=== PATIENT | female | born 1990 | race Caucasian/White ===

== ENCOUNTER 2018-02-18 06:40 | Day surgery (SDC) | payer BC ==
[2018-02-18] MEDS ORDERED: Bupivacaine 25%/EPINEPHrine/PF 30 ML ONE (07:11)
--- NOTE | 2018-02-18 07:18 | PCM.PREANE ---
Preanesthetic Assessment - Anesthesia/Transfusion/Family Hx Anesthesia History: Prior Anesthesia Without Reaction Family History of Anesthesia Reaction: No Transfusion History: No Prior Transfusion(s) Intubation History: Unknown - Review of Systems General: No Symptoms Pulmonary: No Symptoms Cardiovascular: No Symptoms Gastrointestinal: No Symptoms Neurological: No Symptoms Other: Reports: None - Physical Assessment Height: 1.68 m Weight: 111.13 kg ASA Class: 2 Mental Status: Alert & Oriented x3 Airway Class: Mallampati = 2 Dentition: Reports: Normal Dentition Thyro-Mental Finger Breadths: 3 Mouth Opening Finger Breadths: 2 ROM/Head Extension: Full Lungs: Clear to Auscultation, Normal Respiratory Effort Cardiovascular: Regular Rate, Regular Rhythm - Lab Values: Laboratory Last Values POC Glucose 163 mg/dL (60-110) H 02/18/18 07:06 Urine HCG, Qual NEGATIVE (NEGATIVE) 02/18/18 06:55 - Allergies Allergies/Adverse Reactions: Allergies Allergy/AdvReac Type Severity Reaction Status Date / Time ibuprofen Allergy Anaphylactic Verified 02/15/18 10:42 Shock - Blood Product(s) Available: None - Anesthesia Plan Pre-Op Medication Ordered: None - Acknowledgements Anesthesia Type Planned: MAC Pt an Appropriate Candidate for the Planned Anesthesia: Yes Alternatives and Risks of Anesthesia Discussed w Pt/Guardian: Yes Pt/Guardian Understands and Agrees with Anesthesia Plan: Yes PreAnesthesia Questionnaire Cardiovascular History: Reports: Other (See Below) Other Cardiovascular History: Gestational Hypertension with first Gastrointestinal History: Reports: None Genitourinary History: Reports: UTI, 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: Endocrine/Metabolic History: Reports: Diabetes, Type I (has insulin pump), Obesity/BMI 30+ Other Endocrine/Metabolic History: hypothyroidism with first Dermatologic History: Reports: Eczema - Past Surgical History Head Surgeries/Procedures: Reports: None GI Surgical History: Reports: Appendectomy - SUBSTANCE USE Smoking Status *Q: Never Smoker Second Hand Smoke Exposure: No Days Per Week of Alcohol Use: 0 Recreational Drug Use History: No - HOME MEDS Home Medications: Home Meds Subcutaneous Insulin Pump [Insulin Pump] 1 each MC ASDIRECTED 03/24/15 [History] - CURRENT (IN HOUSE) MEDS Current Meds: Current Medications Hydrocodone Bitart/Acetaminophen ([place] 325-5 Mg) 1 tab PO Q4H PRN PRN Reason: Pain Bupivacaine HCl/Epinephrine Bitart (Marcaine 0.25%/Epinephrine 1:200,000) 10 ml INJECT ONETIME ONE Stop: 02/18/18 08:01 Cefazolin Sodium/Dextrose 2 gm (/ Premix) 50 mls @ 100 mls/hr IV ONETIME ONE Stop: 02/18/18 08:29 Lactated Ringer's (Ringers, Lactated) 1,000 mls @ 125 mls/hr IV ASDIRECTED CLARA Last Admin: 02/18/18 07:11 Dose: 125 mls/hr Discontinued Medications Bupivacaine HCl/Epinephrine Bitart (Sensorc Mpf 0.25%-Epi [id number]) Confirm Administered Dose 30 mls @ as directed .ROUTE .STK-MED ONE Stop: 02/18/18 07:12
[2018-02-18] MEDS ORDERED: fentaNYL 100 MCG/2 ML SDV ONE (07:20)
[2018-02-18] MEDS ORDERED: Propofol 200 MG/20 ML SDV ONE (07:20)
[2018-02-18] MEDS ORDERED: Lidocaine 2% 5 ML SDV ONE (07:20)
[2018-02-18] MEDS ORDERED: Midazolam 1 MG/ML 2 ML SDV ONE (07:21)
[2018-02-18] MEDS ORDERED: ceFAZolin/Dextrose,Iso-Osmotic 2 GM/50 ML Duplex Bag IV ONE (07:33)
[2018-02-18] MEDS ORDERED: ceFAZolin 2 GM in Premix Bag 1 BAG IV ONE (08:00)
[2018-02-18] MEDS ORDERED: Lactated Ringers 1,000 ML IV SCH (08:00)
[2018-02-18] MEDS ORDERED: Acetaminophen/HYDROcodone 325-5 MG Tab PO PRN (08:00)
[2018-02-18] MEDS ORDERED: Bupivacaine 0.25%/EPINEPHrine 1:200,000 10 ML SDV INJECT ONE (08:00)
--- NOTE | 2018-02-18 09:03 | PCM48HPAN ---
Post Anesthesia Note - EVALUATION WITHIN 48HRS OF ANESTHETIC Vital Signs in Normal Range: Yes Patient Participated in Evaluation: Yes Respiratory Function Stable: Yes Airway Patent: Yes Cardiovascular Function Stable: Yes Hydration Status Stable: Yes Pain Control Satisfactory: Yes Nausea and Vomiting Control Satisfactory: Yes Mental Status Recovered: Yes Resp Rate: 15 - COMMENTS/OBSERVATIONS Free Text/Narrative:: no anesthesia problems
[2018-02-18 09:20] VITALS: BP 117/64
--- NOTE | 2018-02-18 11:04 | PCM.OPNOTE ---
- General Post-Op/Procedure Note Date of Surgery/Procedure: 02/18/18 Operative Procedure(s): right carpal tunnel release Pre Op Diagnosis: right carpal tunnel Post-Op Diagnosis: Same Anesthesia Technique: Local, MAC Primary Surgeon: Cristina Chen Complications: None Condition: Good Free Text/Narrative:: Intake & Output 02/17/18 02/18/18 02/18/18 23:59 07:59 15:59 Intake Total 1000 Balance 1000
--- NOTE | 2018-02-18 19:55 | OR ---
SURGEON: CRISTINA CHEN MD DATE OF PROCEDURE: 02/18/2018 PREOPERATIVE DIAGNOSIS: Right carpal tunnel syndrome. POSTOPERATIVE DIAGNOSIS: Right carpal tunnel syndrome. PROCEDURE: Right carpal tunnel release. PRIMARY SURGEON: Cristina Chen MD. ANESTHESIA: Local MAC. INDICATIONS: Ms. Gaston is a 27-year-old female, seen today for right carpal tunnel release. Risks and benefits of release were discussed with her and she was in agreement to proceed. Risks were including, but not limited to, bleeding, infection, damage to underlying or overlying structures, possible need for future interventions, and possible scarring. PROCEDURE IN DETAIL: After informed consent was obtained and placed on the chart, the patient was brought to the operating theater and laid in the supine position. After adequate local MAC anesthesia was obtained, the area was prepped and draped and a time-out was completed to confirm side and site. The arm was exsanguinated. The tourniquet was insufflated to 200 mmHg. Once this was completed, attention was then paid to dissection of the transverse carpal ligament using a 15 blade through the skin and subcutaneous tissues. Under direct visualization, the ligament was breached, and dissection was carried distally and proximally under direct visualization until complete release. Once adequately released, the wound was copiously irrigated. A small amount of scar tissue and an external neurolysis was performed on the nerve itself. Once this was completed, it was irrigated and closed using 5-0 nylon stitch in a horizontal mattress fashion. The patient tolerated this well. All counts and needles were correct at the end of the case. FOLLOWUP INSTRUCTIONS: The patient will see us in 10 to 14 days, sooner if any problems, questions, or concerns. She was given a prescription for pain control. HEGGTHE / MODL /[id number]
== END 2018-02-18 09:13 | disposition home or self-care (01) ==
LOC: MW.SDS 06:40
PROVIDERS: ATTEND Plastic Surgery
DX: G56.03 Carpal tunnel syndrome, bilateral upper limbs (principal); E10.9 Type 1 diabetes mellitus without complications; N76.0 Acute vaginitis; E66.9 Obesity, unspecified; Z68.39 Body mass index [BMI] 39.0-39.9, adult; Z96.41 Presence of insulin pump (external) (internal); Z88.6 Allergy status to analgesic agent; Z90.49 Acquired absence of other specified parts of digestive tract
CPT/HCPCS: 64721; 81025; 82962; J0690; J2250; J3010; J7120; J2704